=== PATIENT | female | born 1985 | race Hispanic/Latino ===

== ENCOUNTER 2017-04-19 19:57 | Emergency (ER) | payer BC ==
[~2017-04-19] VITALS: Ht 165.1 cm; Wt 90.7 kg
[2017-04-19 21:00] LABS: BASOPHILS % 0.2 % (0.0-1.0); BILIRUBIN,URINE NEGATIVE (NEGATIVE); CLARITY,URINE CLEAR (CLEAR); COLOR,URINE YELLOW (YELLOW); EOSINOPHILS # (AUTO) 0.1 (0.0-0.4); EOSINOPHILS % 0.6 % (0.0-6.0); HEMATOCRIT 37.8 % (34.2-44.1); HEMOGLOBIN 12.9 g/dL (12.0-16.0); KETONES,URINE NEGATIVE (NEGATIVE); LEUKOCYTE ESTERASE ,URINE NEGATIVE (NEGATIVE); LYMPHOCYTES # (AUTO) 1.4 (1.0-3.2); LYMPHOCYTES % 13.3 % (18.0-39.1); MEAN CORPUSCULAR HEMOGLOBIN 30.1 pg (28-32); MEAN CORPUSCULAR HGB CONC 34.1 g/dL (31-35); MEAN CORPUSCULAR VOLUME 88.3 fL (81-99); MONOCYTES # (AUTO) 0.6 (0.2-0.8); MONOCYTES % 5.5 % (4.4-11.3); NEUTROPHILS # (AUTO) 8.3 (2.1-6.9); NITRITE,URINE NEGATIVE (NEGATIVE); PLATELET COUNT 343 x10e3/uL (140-360); PROTEIN,URINE DIPSTICK NEGATIVE (NEGATIVE); RED BLOOD COUNT 4.28 x10e6/uL (3.6-5.1); URINE UROBILINOGEN 0.2 mg/dL (0.2 - 1)
[2017-04-19 21:02] LABS: EPITHELIAL CELLS,URINE RARE /LPF; MUCUS,URINE FEW (RARE); PREGNANCY TEST, URINE NEGATIVE (NEGATIVE); RBC,URINE 0-5 /HPF (0-5); WBC,URINE (MAN) 0-5 /HPF (0-5)
[2017-04-19 21:11] LABS: ANION GAP 14.7 mmol/L (8-16); BLOOD UREA NITROGEN 8 mg/dL (7-26); BUN/CREATININE RATIO 11 (6-25); CARBON DIOXIDE 24 mmol/L (22-29); CHLORIDE 106 mmol/L (98-107); CREATININE, SERUM 0.76 mg/dL (0.57-1.11); EST GLOMERULAR FILTRATION RATE > 60 ML/MIN (60-); GLUCOSE 104 mg/dL (74-118); POTASSIUM 3.7 mmol/L (3.5-5.1); SODIUM 141 mmol/L (136-145)
--- NOTE | 2017-04-19 21:23 | Diagnostic Imaging Report ---
EXAMINATION: Head CT HISTORY: Dizziness, headache, hypertension COMPARISON: None. TECHNIQUE: Multidetector axial images were obtained without contrast from the foramen magnum to the vertex . The images were reconstructed using brain and bone algorithms. Thin section brain images were reformatted into coronal and sagittal planes. Intravenous contrast: None. Motion/streaking artifact limits the evaluation of the skull base and posterior cranial fossa. FINDINGS: Parenchyma: 1. No abnormal densities. 2. No mass or hemorrhage. No CT evidence of acute territorial vascular insult. Extra-axial spaces:No abnormal density. No extra-axial fluid collections Brain volume: Normal for age. Ventricles: No hydrocephalus or displacement. Arteries: No density suggestive of thrombus. Dural sinuses: No abnormal density. Extra-axial spaces: No abnormal density. Foramen magnum: No mass, Chiari malformation, or basilar invagination. Sella: No obvious mass. Paranasal/mastoid sinuses: Imaged portions unremarkable. Skull/Scalp: No lytic or blastic lesions. No fractures. IMPRESSION: No intracranial abnormalities, particularly no hemorrhage. Signed by: Dr. Melva Ramey M.D. on 04/19/2017 9:20 PM
[2017-04-19 21:48] VITALS: BP 113/77
== END 2017-04-19 22:06 | disposition home or self-care (01) ==
LOC: ER 19:57
DX: R42 Dizziness and giddiness (principal); R51 Headache; R11.0 Nausea
CPT/HCPCS: 36415; 70450; 80048; 81001; 81025; 85025; 99284

== ENCOUNTER 2019-06-17 02:40 | Observation (INO) | payer BC ==
[~2019-06-17] VITALS: Ht 165.1 cm; Wt 88.5 kg
--- OUTSIDE RECORDS SUMMARY | 2019-06-17 02:44 | XMS REPORT ---
Author Author [facility] Address Unknown Phone Unavailable Care Team Providers Care Neurology Epilepsy Physician Name Role Phone Magaly SALGADO Unavailable Unavailable Problems This patient has no known problems. Allergies, Adverse Reactions, Alerts This patient has no known allergies or adverse reactions. Medications This patient has no known medications. Results Test Description Test Time Test Comments Text Results Atomic Results Result Comments CT BRAIN WO [place] [id number] Patient Name: HUMBERTO MCGOVERN MR #: [id number] : 1985 Age/Sex: 31/F Req #: [id number] Adm Physician: Ordered by: ALEJANDRA TERRELL [employer]MENT SUPERVISOR Report #: [id number] Location: ER Room/Bed: Procedure: [id number] CT/CT BRAIN WO Exam Date: 04/19/17 Exam Time: 2040 REPORT STATUS: Signed EXAMINATION: Head CT HISTORY: Dizziness, headache, hypertension COMPARISON: None. TECHNIQUE: Multidetector axial images were obtained without contrast from the foramen magnum to the vertex . The images were reconstructed using brain and bone algorithms. Thin section brain images were reformatted into coronal and sagittal planes. Intravenous contrast: None. Motion/streaking artifact limits the evaluation of the skull base and posterior cranial fossa. FINDINGS: Parenchyma: 1. No abnormal densities. 2. No mass or hemorrhage. No CT evidence of acute territorial vascular insult. Extra-axial spaces:No abnormal density. No extra-axial fluid collections Brain volume: Normal for age. Ventricles: No hydrocephalus or displacement. Arteries: No density suggestive of thrombus. Dural sinuses: No abnormal density. Extra-axial spaces: No abnormal density. Foramen magnum: No mass, Chiari malformation, or basilar invagination. Sella: No obvious mass. Paranasal/mastoid sinuses: Imaged portions unremarkable. Skull/Scalp: No lytic or blastic lesions. No fractures. IMPRESSION: No intracranial abnormalities, particularly no hemorrhage. Signed by: Dr. Chapis Ramey M.D. on 04/19/2017 9:20 PM Dictated By: CHAPIS RAMEY MD 19 Transcribed By: BENITEZ on 04/19/172119 COPY TO: ALEJANDRA TERRELL NP
[2019-06-17 03:14] LABS: BASOPHILS % 0.4 % (0.0-1.0); EOSINOPHILS # (AUTO) 0.1 (0.0-0.4); EOSINOPHILS % 2.1 % (0.0-6.0); HEMATOCRIT 38.2 % (34.2-44.1); HEMOGLOBIN 12.9 g/dL (12.0-16.0); LYMPHOCYTES # (AUTO) 2.2 (1.0-3.2); LYMPHOCYTES % 41.6 % (18.0-39.1); MEAN CORPUSCULAR HEMOGLOBIN 30.4 pg (28-32); MEAN CORPUSCULAR HGB CONC 33.8 g/dL (31-35); MEAN CORPUSCULAR VOLUME 89.9 fL (81-99); MONOCYTES # (AUTO) 0.5 (0.2-0.8); MONOCYTES % 9.4 % (4.4-11.3); NEUTROPHILS # (AUTO) 2.4 (2.1-6.9); NEUTROPHILS % 46.3 % (38.7-80.0); PLATELET COUNT 340 x10e3/uL (140-360); RED BLOOD COUNT 4.25 x10e6/uL (3.6-5.1); RED CELL DISTRIBUTION WIDTH 12.5 % (11.7-14.4)
[2019-06-17 03:20] LABS: CLARITY,URINE CLEAR (CLEAR); COLOR,URINE YELLOW (YELLOW)
[2019-06-17 03:21] LABS: BILIRUBIN,URINE NEGATIVE (NEGATIVE); KETONES,URINE NEGATIVE (NEGATIVE); LEUKOCYTE ESTERASE ,URINE NEGATIVE (NEGATIVE); NITRITE,URINE NEGATIVE (NEGATIVE); PROTEIN,URINE DIPSTICK NEGATIVE (NEGATIVE); URINE UROBILINOGEN 0.2 mg/dL (0.2 - 1)
[2019-06-17 03:25] LABS: ANION GAP 13.6 mmol/L (8-16); BLOOD UREA NITROGEN 5 mg/dL (7-26); BUN/CREATININE RATIO 7 (6-25); CALCIUM 8.2 mg/dL (8.4-10.2); CARBON DIOXIDE 26 mmol/L (22-29); CHLORIDE 106 mmol/L (98-107); CREATININE, SERUM 0.72 mg/dL (0.57-1.11); EST GLOMERULAR FILTRATION RATE > 60 ML/MIN (60-); GLUCOSE 122 mg/dL (74-118); POTASSIUM 3.6 mmol/L (3.5-5.1); SODIUM 142 mmol/L (136-145)
[2019-06-17 03:29] LABS: PREGNANCY TEST, URINE NEGATIVE (NEGATIVE)
[2019-06-17 03:32] LABS: BACTERIA,URINE RARE /HPF; EPITHELIAL CELLS,URINE FEW /LPF; RBC,URINE 0-5 /HPF (0-5); WBC,URINE (MAN) 0-5 /HPF (0-5)
[2019-06-17] MEDS ORDERED: KETOROLAC TROMETHAMINE 30 MG/ML VIAL IV STA (04:02)
[2019-06-17] MEDS ORDERED: ONDANSETRON HCL INJ 2MG/ML 2ML 2 MG/ML VIAL IV STA (04:03)
--- NOTE | 2019-06-17 04:53 | Diagnostic Imaging Report ---
CT Abdomen And Pelvis with Intravenous Contrast INDICATION: Right lower abdominal pain, nausea ^RLQ PAIN ^[id number] ^0415 ^Y TECHNIQUE: Thin collimation axial images obtained from the diaphragm to the level of the pubic symphysis following the uneventful administration of 100 cc of low osmolar, nonionic intravenous contrast. Dose reduction techniques used: Automated exposure control, adjustment of the mAs and/or kVp according to patient size, standardized low-dose protocol, and/or iterative reconstruction technique. RADIATION DOSE: Total DLP: 562.54 mGy*cm Estimated effective dose: (DLP x 0.015 x size factor) mSv CTDIvol has been reviewed. It is below the limits set by the Radiation Protocol Committee (RPC). COMPARISON: None. ABDOMEN FINDINGS: Lung Bases: Clear. The visualized portions of the mediastinum are normal.. Liver: Normal attenuation. No evidence for mass. Gallbladder: Present and appears normal. No biliary ductal dilatation. Pancreas: Normal attenuation without mass or ductal dilatation. Spleen: Normal in size. No evidence of mass. Adrenal Glands: No evidence for mass. Kidneys: Right: Normal enhancement. No soft tissue mass. No hydronephrosis. Left: Normal enhancement. Low attenuating intracortical lesion in the proximal lower pole measures 11 mm and is likely a cyst. There is mild fullness of the renal pelvis and the proximal and mid ureter. The ureter distal to the left ovary is normal in diameter. No mucosal hyperemia. Lymph Nodes: No lymphadenopathy. Aorta: Normal in diameter PELVIS FINDINGS: Bowel: Stomach: Normal. Small Bowel: Normal in caliber with normal wall thickness. Large Bowel: Normal in caliber with normal wall thickness. Appendix: Present and contains high attenuating intraluminal material proximally. No mural hyperemia. There is a tiny amount of fluid adjacent to the distal appendix. Bladder: Mildly underdistended. The uterus is present and normal in morphology. There is a corpus luteum in the left ovary Peritoneum/retroperitoneum: Small amount of free fluid in the left pericolic gutter and posterior pelvis. No free air. Bones: Small posterior disc bulge at L5-S1. No focal osseous lesions.. IMPRESSION: 1. Corpus luteum in the left ovary with adjacent free fluid suggestive of recent ovulation. 2. High attenuating intraluminal material in the proximal appendix and small amount fluid adjacent to the distal appendix without appendiceal dilatation or mural hyperemia. Findings are inconclusive for appendicitis. Please correlate with clinical exam findings. 3. No bowel obstruction. 4. Mild fullness of the left renal pelvis and proximal and mid left ureter, possibly secondary to enlargement and associated inflammation of the left ovary. Please correlate with signs/symptoms of UTI. No renal calculus. Signed by: Dr. Isrrael Joseph MD on 06/17/2019 4:51 AM
[2019-06-17] MEDS ORDERED: IOPAMIDOL 370 MG/ML 200 ML INFUS..BTL INJ ONE (05:38)
[2019-06-17] MEDS ORDERED: SODIUM CHLORIDE 0.9% 50ML 50 ML ONE (05:38)
[2019-06-17] MEDS ORDERED: ONDANSETRON HCL INJ 2MG/ML 2ML 2 MG/ML VIAL IV PRN (05:45)
[2019-06-17] MEDS ORDERED: MORPHINE SULFATE 2 MG/ML SYR 1ML IV PRN (05:45)
[2019-06-17] MEDS ORDERED: SODIUM CHLORIDE 0.9% 1000ML 1,000 ML ONE (06:04)
[2019-06-17] MEDS: SODIUM CHLORIDE 0.9% 1000ML 1,000 ML IV SCH ×3 (06:28→15:40)
--- NOTE | 2019-06-17 06:59 | NUR ---
REPORT GIVEN TO HAN RN DAY SHIFT NURSE.
--- NOTE | 2019-06-17 07:04 | History and Physical ---
CHIEF COMPLAINT: Abdominal pain. HISTORY OF PRESENT ILLNESS: The patient is a 33-year-old female, who presents with lower abdominal pain started about 3 or 4 hours ago. She has not had nausea or vomiting, says the pain is a little bit less now. CT of the abdomen and pelvis was done, which revealed some material within the appendix, but the appendix otherwise did not appear inflamed. She has not had any fever. PAST MEDICAL HISTORY: Significant for hypertension, but she is on no medication. She has gastritis, which she intermittently takes omeprazole. ALLERGIES: SHE HAS NO KNOWN ALLERGIES. PAST SURGICAL HISTORY: No previous surgeries. FAMILY HISTORY: Noncontributory. SOCIAL HISTORY: The patient smokes cigarettes about two a day. Drinks alcohol on the weekends, about three or four drinks. REVIEW OF SYSTEMS: As stated above, otherwise was negative. PHYSICAL EXAMINATION: GENERAL: The patient is awake and alert, in no distress. VITAL SIGNS: Normal. HEENT: Sclerae nonicteric. NECK: Supple. No masses. LUNGS: Equal breath sounds are clear bilaterally. CARDIAC: Regular rate and rhythm with no murmur. ABDOMEN: Soft. There is tenderness in the lower mid abdomen with no distention. No mass. No signs of peritonitis. EXTREMITIES: No edema. Pulses are palpable. NEUROLOGIC: Intact. LABORATORY DATA: White blood cell count is normal, normal differential, hemoglobin and hematocrit are normal. Chemistries are essentially normal. ASSESSMENT: A 33-year-old female with lower abdominal pain, questionable abnormalities on the CT scan of the abdomen and pelvis. She now admitted to the hospital for observation. PLAN: Keep her n.p.o. on IV fluids. We will assess her later today. MD BRYSON Vargas/CHAN /[id number]
--- NOTE | 2019-06-17 07:41 | NUR ---
Assumed care of patient in rm 9, patient resting quietly on stretcher reports pain to R suprapubic area, aching in nature. NS infusing @125ml/hr. Pt ambulated to RR without difficulty. Awaiting further orders/disposition.
--- NOTE | 2019-06-17 09:07 | NUR ---
Report called to Rissa on Med-surg 2, patient will go to 211
[2019-06-17 10:14] VITALS: BP 119/67
[2019-06-17 11:57] VITALS: BP 116/65
[2019-06-17 15:06] LABS: BASOPHILS % 0.1 % (0.0-1.0); EOSINOPHILS % 0.3 % (0.0-6.0); HEMATOCRIT 35.1 % (34.2-44.1); LYMPHOCYTES # (AUTO) 1.5 (1.0-3.2); LYMPHOCYTES % 22.2 % (18.0-39.1); MEAN CORPUSCULAR HEMOGLOBIN 30.5 pg (28-32); MEAN CORPUSCULAR HGB CONC 34.2 g/dL (31-35); MEAN CORPUSCULAR VOLUME 89.3 fL (81-99); MONOCYTES # (AUTO) 0.6 (0.2-0.8); MONOCYTES % 9.3 % (4.4-11.3); NEUTROPHILS # (AUTO) 4.6 (2.1-6.9); NEUTROPHILS % 67.8 % (38.7-80.0); PLATELET COUNT 298 x10e3/uL (140-360); RED BLOOD COUNT 3.93 x10e6/uL (3.6-5.1); RED CELL DISTRIBUTION WIDTH 12.6 % (11.7-14.4)
[2019-06-17 15:54] VITALS: BP 127/65
--- NOTE | 2019-06-17 19:00 | NUR ---
Bedside report and rounds completed with off going nurse. Patient in bed, call light within reach. No issues or concerns noted. Will continue to monitor closely.
[2019-06-17 20:00] VITALS: BP 138/83
[2019-06-17 20:46] VITALS: BP 138/83
--- NOTE | 2019-06-17 22:00 | NUR ---
Patient request fluid to decreased. Fluid at 75 ml /hr. Tolerating
[2019-06-18 00:45] VITALS: BP 122/71
[2019-06-18 05:14] VITALS: BP 120/82
[2019-06-18 05:19] LABS: HEMATOCRIT 33.9 % (34.2-44.1); HEMOGLOBIN 11.1 g/dL (12.0-16.0); MEAN CORPUSCULAR HEMOGLOBIN 29.7 pg (28-32); MEAN CORPUSCULAR HGB CONC 32.7 g/dL (31-35); MEAN CORPUSCULAR VOLUME 90.6 fL (81-99); PLATELET COUNT 271 x10e3/uL (140-360); RED BLOOD COUNT 3.74 x10e6/uL (3.6-5.1); RED CELL DISTRIBUTION WIDTH 12.7 % (11.7-14.4)
[2019-06-18] MEDS: SODIUM CHLORIDE 0.9% 1000ML 1,000 ML IV SCH (06:42)
--- NOTE | 2019-06-18 07:21 | NUR ---
Bedside report and rounds completed with oncoming nurse. Patient in bed resting, call light within reach. No issues or concerns noted.
[2019-06-18 07:54] VITALS: BP 119/77
[2019-06-18 08:23] VITALS: BP 119/77
[2019-06-18 11:53] VITALS: BP 123/83
--- NOTE | 2019-06-18 13:10 | NUR ---
pt discharged home with no prescription at this time pt was asked to follow up with her PCP, iv site was removed at this time, no redness no swelling to site, pt discharge with her family members. no c/o abd. pain at discharge.
== END 2019-06-18 13:01 | disposition home or self-care (01) ==
LOC: ER 02:40 → ERHOLD 05:39 → MED/SURG2 09:21
PROVIDERS: ADMIT Surgery; ATTEND Surgery
DX: R10.30 Lower abdominal pain, unspecified (principal); I10 Essential (primary) hypertension; K29.70 Gastritis, unspecified, without bleeding
CPT/HCPCS: 36415 ×2; 74177; 80048; 81001; 81025; 85007; 85025; 85027; 99284; G0378 ×2; J1885; J2405; J7030 ×2; Q9967